=== PATIENT | female | born 1950 | race Caucasian/White ===

== ENCOUNTER → 2020-09-10 | Outpatient (CLI) | payer OTHER, BC ==
[~2020-09-10] VITALS: Ht 167.6 cm; Wt 64.4 kg
[~2020-09-10] MED LIST: BUSPIRONE HCL10 MG PO; CEPHALEXIN 250250 M1 PO; EPITOL200 MG PO; FLOMAX0.4 MG PO; GABAPENTIN800 M1 PO; HYDROCODONE-AP1 EA11 PO; MACROBID 100 M100 MG PO; MS CONTIN30 MG PO; NORCO 10-325 T1 EACH PO; NORVASC10 MG PO; TYLENOL325 MG PO
[2020-09-10 13:09] VITALS: BP 146/79
--- NOTE | 2020-09-10 13:31 | NUR ---
Pain Clinic Assessment: 1. History of Osteoarthritis: Not Applicable History of Rheumatoid Arthritis: Not Applicable 2. Height: 5 ft. 6 in. 167.6 cm. Weight: 142.0 lb. oz. 64.411 kg. Patient's BMI: 22.9 3. Vital Signs: BP: 146/79 Pulse: 83 Resp: 16 Temp: 02 Sat: 99 ECG Mon: 4. Pain Intensity: 9 5. Fall Risk: Dizziness: N Needs help standing or walking: N Fallen in the last 3 months: N Fall risk comments: 6. Patient on Blood Thinner: None 7. History of Hypertension: Y 8. Opioid Therapy greater than 6 weeks: Y Opiate Contract Signed: 9. Risk Assessment Tool Provided: LOW 10. Functional Assessment Tool: 70/70 11. Recreational Drug Use: Never Drug Type: Tobacco Use: Never Smoker Tobacco Type: Amount or Packs/day: How Many Years: Alcohol Use: Yes Frequency: Weekly Quant: 1-2
== END ==
LOC: PAIN 10:46
PROVIDERS: ATTEND Anesthesiology Pain Medicine
DX: G89.29 Other chronic pain (principal); M54.5 Low back pain; M79.604 Pain in right leg; M79.605 Pain in left leg; I10 Essential (primary) hypertension; G96.191 Perineural cyst; G58.8 Other specified mononeuropathies; R39.198 Other difficulties with micturition; R39.11 Hesitancy of micturition; C44.722 Squamous cell carcinoma of skin of right lower limb, including hip; M89.8X9 Other specified disorders of bone, unspecified site; M25.812 Other specified joint disorders, left shoulder; C44.309 Unspecified malignant neoplasm of skin of other parts of face; C44.311 Basal cell carcinoma of skin of nose; Z88.8 Allergy status to other drugs, medicaments and biological substances; Z90.49 Acquired absence of other specified parts of digestive tract; Z79.891 Long term (current) use of opiate analgesic; Z79.899 Other long term (current) drug therapy

== ENCOUNTER → 2020-10-08 | Outpatient (CLI) | payer OTHER, BC ==
[~2020-10-08] VITALS: Ht 167.6 cm; Wt 64.2 kg
[2020-10-08 11:09] VITALS: BP 146/65
--- NOTE | 2020-10-08 11:13 | NUR ---
Pain Clinic Assessment: 1. History of Osteoarthritis: Not Applicable History of Rheumatoid Arthritis: Not Applicable 2. Height: 5 ft. 6 in. 167.6 cm. Weight: 141.6 lb. oz. 64.229 kg. Patient's BMI: 22.9 3. Vital Signs: BP: 146/65 Pulse: 68 Resp: 16 Temp: 02 Sat: 98 ECG Mon: 4. Pain Intensity: 4 5. Fall Risk: Dizziness: N Needs help standing or walking: N Fallen in the last 3 months: N Fall risk comments: 6. Patient on Blood Thinner: None 7. History of Hypertension: Y 8. Opioid Therapy greater than 6 weeks: Y Opiate Contract Signed: 9. Risk Assessment Tool Provided: LOW 10. Functional Assessment Tool: 70/70 11. Recreational Drug Use: Never Drug Type: Tobacco Use: Never Smoker Tobacco Type: Amount or Packs/day: How Many Years: Alcohol Use: Yes Frequency: Quant:
== END ==
LOC: PAIN 07:10
PROVIDERS: ATTEND Anesthesiology Pain Medicine
DX: G89.29 Other chronic pain (principal); R39.11 Hesitancy of micturition; G50.0 Trigeminal neuralgia; I10 Essential (primary) hypertension; M89.9 Disorder of bone, unspecified; M75.82 Other shoulder lesions, left shoulder; C44.309 Unspecified malignant neoplasm of skin of other parts of face; C44.301 Unspecified malignant neoplasm of skin of nose; C44.709 Unspecified malignant neoplasm of skin of left lower limb, including hip; C44.702 Unspecified malignant neoplasm of skin of right lower limb, including hip; Z79.899 Other long term (current) drug therapy; Z79.891 Long term (current) use of opiate analgesic

== ENCOUNTER → 2020-11-05 | Outpatient (CLI) | payer OTHER, BC ==
[~2020-11-05] VITALS: Ht 167.6 cm; Wt 63.9 kg
[2020-11-05 11:24] VITALS: BP 153/79
--- NOTE | 2020-11-05 11:29 | NUR ---
Pain Clinic Assessment: 1. History of Osteoarthritis: Not Applicable History of Rheumatoid Arthritis: Not Applicable 2. Height: 5 ft. 6 in. 167.6 cm. Weight: 140.8 lb. oz. 63.866 kg. Patient's BMI: 22.7 3. Vital Signs: BP: 153/79 Pulse: 73 Resp: 16 Temp: 02 Sat: 97 ECG Mon: 4. Pain Intensity: 3 5. Fall Risk: Dizziness: N Needs help standing or walking: N Fallen in the last 3 months: N Fall risk comments: 6. Patient on Blood Thinner: None 7. History of Hypertension: Y 8. Opioid Therapy greater than 6 weeks: Y Opiate Contract Signed: 09/10/20 9. Risk Assessment Tool Provided: LOW 10. Functional Assessment Tool: 70/70 11. Recreational Drug Use: Never Drug Type: Tobacco Use: Never Smoker Tobacco Type: Amount or Packs/day: How Many Years: Alcohol Use: Yes Frequency: Weekly Quant: 5
== END ==
LOC: PAIN 07:02
PROVIDERS: ATTEND Anesthesiology Pain Medicine
DX: G96.191 Perineural cyst (principal); G62.9 Polyneuropathy, unspecified; G89.29 Other chronic pain; R35.0 Frequency of micturition; G50.0 Trigeminal neuralgia; I10 Essential (primary) hypertension; Z79.899 Other long term (current) drug therapy

== ENCOUNTER → 2020-12-03 | Outpatient (CLI) | payer OTHER, BC ==
[~2020-12-03] VITALS: Ht 167.6 cm; Wt 62.5 kg
[2020-12-03 11:22] VITALS: BP 144/74
--- NOTE | 2020-12-03 11:29 | NUR ---
Pain Clinic Assessment: 1. History of Osteoarthritis: Not Applicable History of Rheumatoid Arthritis: Not Applicable 2. Height: 5 ft. 6 in. 167.6 cm. Weight: 137.8 lb. oz. 62.506 kg. Patient's BMI: 22.3 3. Vital Signs: BP: 144/74 Pulse: 67 Resp: 16 Temp: 02 Sat: 96 ECG Mon: 4. Pain Intensity: 4 5. Fall Risk: Dizziness: N Needs help standing or walking: N Fallen in the last 3 months: N Fall risk comments: 6. Patient on Blood Thinner: None 7. History of Hypertension: Y 8. Opioid Therapy greater than 6 weeks: Y Opiate Contract Signed: 09/10/20 9. Risk Assessment Tool Provided: LOW 10. Functional Assessment Tool: 70/70 11. Recreational Drug Use: Never Drug Type: Tobacco Use: Never Smoker Tobacco Type: Amount or Packs/day: How Many Years: Alcohol Use: Yes Frequency: Special Occasions Quant: 1
== END ==
LOC: PAIN 06:55
PROVIDERS: ATTEND Anesthesiology Pain Medicine
DX: G62.9 Polyneuropathy, unspecified (principal); G89.29 Other chronic pain; R39.198 Other difficulties with micturition; G50.0 Trigeminal neuralgia; I10 Essential (primary) hypertension; Z79.899 Other long term (current) drug therapy; Z79.891 Long term (current) use of opiate analgesic

== ENCOUNTER → 2020-12-31 | Outpatient (CLI) | payer OTHER, BC ==
[~2020-12-31] VITALS: Ht 167.6 cm; Wt 60.8 kg
[~2020-12-31] MED LIST changes: +TYLENOL325 M1 PO
[2020-12-31 09:49] VITALS: BP 119/41
--- NOTE | 2020-12-31 10:01 | NUR ---
Pain Clinic Assessment: 1. History of Osteoarthritis: Not Applicable History of Rheumatoid Arthritis: Not Applicable 2. Height: 5 ft. 6 in. 167.6 cm. Weight: 134.0 lb. oz. 60.782 kg. Patient's BMI: 21.6 3. Vital Signs: BP: 119/41 Pulse: 71 Resp: 16 Temp: 02 Sat: 97 ECG Mon: 4. Pain Intensity: 3 5. Fall Risk: Dizziness: N Needs help standing or walking: N Fallen in the last 3 months: N Fall risk comments: 6. Patient on Blood Thinner: None 7. History of Hypertension: Y 8. Opioid Therapy greater than 6 weeks: Y Opiate Contract Signed: 09/10/20 9. Risk Assessment Tool Provided: LOW 10. Functional Assessment Tool: 70/70 11. Recreational Drug Use: Never Drug Type: Tobacco Use: Never Smoker Tobacco Type: Amount or Packs/day: How Many Years: Alcohol Use: Yes Frequency: Daily Quant: 1/2 GLASS A NIGHT
== END ==
LOC: PAIN 08:53
PROVIDERS: ATTEND Anesthesiology Pain Medicine
DX: G50.0 Trigeminal neuralgia (principal); G62.9 Polyneuropathy, unspecified; G89.29 Other chronic pain; I10 Essential (primary) hypertension; Z79.899 Other long term (current) drug therapy; Z79.891 Long term (current) use of opiate analgesic

== ENCOUNTER → 2021-01-26 | Outpatient (CLI) | payer OTHER, BC ==
[~2021-01-26] VITALS: Ht 167.6 cm; Wt 61.7 kg
[2021-01-26 11:21] VITALS: BP 146/74
--- NOTE | 2021-01-26 11:31 | NUR ---
Pain Clinic Assessment: 1. History of Osteoarthritis: Not Applicable History of Rheumatoid Arthritis: Not Applicable 2. Height: 5 ft. 6 in. 167.6 cm. Weight: 136.0 lb. oz. 61.689 kg. Patient's BMI: 22.0 3. Vital Signs: BP: 146/74 Pulse: 73 Resp: 14 Temp: 02 Sat: 98 ECG Mon: 4. Pain Intensity: 4, 11 face 5. Fall Risk: Dizziness: N Needs help standing or walking: N Fallen in the last 3 months: N Fall risk comments: 6. Patient on Blood Thinner: None 7. History of Hypertension: Y 8. Opioid Therapy greater than 6 weeks: Y Opiate Contract Signed: 09/10/20 9. Risk Assessment Tool Provided: LOW 10. Functional Assessment Tool: 70/70 11. Recreational Drug Use: Never Drug Type: Tobacco Use: Never Smoker Tobacco Type: Amount or Packs/day: How Many Years: Alcohol Use: Yes Frequency: Quant:
== END ==
LOC: PAIN 07:08
PROVIDERS: ATTEND Clinical Nurse Specialist Adult Health
DX: G62.9 Polyneuropathy, unspecified (principal); G89.29 Other chronic pain; I10 Essential (primary) hypertension; G50.0 Trigeminal neuralgia; Z79.891 Long term (current) use of opiate analgesic; Z79.899 Other long term (current) drug therapy

== ENCOUNTER → 2021-02-23 | Outpatient (CLI) | payer OTHER, BC ==
[~2021-02-23] VITALS: Ht 167.6 cm; Wt 64.3 kg
[2021-02-23 10:33] VITALS: BP 145/58
--- NOTE | 2021-02-23 10:43 | NUR ---
Pain Clinic Assessment: 1. History of Osteoarthritis: Not Applicable History of Rheumatoid Arthritis: Not Applicable 2. Height: 5 ft. 6 in. 167.6 cm. Weight: 141.8 lb. oz. 64.320 kg. Patient's BMI: 22.9 3. Vital Signs: BP: 145/58 Pulse: 75 Resp: 20 Temp: 02 Sat: 100 ECG Mon: 4. Pain Intensity: 4-5 5. Fall Risk: Dizziness: N Needs help standing or walking: N Fallen in the last 3 months: N Fall risk comments: 6. Patient on Blood Thinner: None 7. History of Hypertension: Y 8. Opioid Therapy greater than 6 weeks: Y Opiate Contract Signed: 09/10/20 9. Risk Assessment Tool Provided: LOW 10. Functional Assessment Tool: 70/70 11. Recreational Drug Use: Never Drug Type: Tobacco Use: Never Smoker Tobacco Type: Amount or Packs/day: How Many Years: Alcohol Use: Yes Frequency: Quant:
== END ==
LOC: PAIN 06:51
PROVIDERS: ATTEND Clinical Nurse Specialist Adult Health
DX: G89.29 Other chronic pain (principal); M54.16 Radiculopathy, lumbar region; Z88.8 Allergy status to other drugs, medicaments and biological substances; Z79.899 Other long term (current) drug therapy

== ENCOUNTER → 2021-03-23 | Outpatient (CLI) | payer OTHER, BC ==
[~2021-03-23] VITALS: Ht 167.6 cm; Wt 63.6 kg
[2021-03-23 11:11] VITALS: BP 152/56
--- NOTE | 2021-03-23 11:16 | NUR ---
Pain Clinic Assessment: 1. History of Osteoarthritis: Not Applicable History of Rheumatoid Arthritis: Not Applicable 2. Height: 5 ft. 6 in. 167.6 cm. Weight: 140.2 lb. oz. 63.594 kg. Patient's BMI: 22.6 3. Vital Signs: BP: 152/56 Pulse: 74 Resp: 16 Temp: 02 Sat: 97 ECG Mon: 4. Pain Intensity: 4 5. Fall Risk: Dizziness: N Needs help standing or walking: N Fallen in the last 3 months: N Fall risk comments: 6. Patient on Blood Thinner: None 7. History of Hypertension: Y 8. Opioid Therapy greater than 6 weeks: Y Opiate Contract Signed: 09/10/20 9. Risk Assessment Tool Provided: LOW 10. Functional Assessment Tool: 70/70 11. Recreational Drug Use: Never Drug Type: Tobacco Use: Never Smoker Tobacco Type: Amount or Packs/day: How Many Years: Alcohol Use: Yes Frequency: Special Occasions Quant: 1
== END ==
LOC: PAIN 10:51
PROVIDERS: ATTEND Clinical Nurse Specialist Adult Health
DX: M54.16 Radiculopathy, lumbar region (principal); M54.50 Low back pain, unspecified; Z88.8 Allergy status to other drugs, medicaments and biological substances; Z79.899 Other long term (current) drug therapy

== ENCOUNTER → 2021-04-27 | Outpatient (CLI) | payer OTHER, BC ==
[~2021-04-27] VITALS: Ht 167.6 cm; Wt 63.7 kg
[2021-04-27 10:53] VITALS: BP 158/79
--- NOTE | 2021-04-27 11:03 | NUR ---
Pain Clinic Assessment: 1. History of Osteoarthritis: Not Applicable History of Rheumatoid Arthritis: Not Applicable 2. Height: 5 ft. 6 in. 167.6 cm. Weight: 140.4 lb. oz. 63.685 kg. Patient's BMI: 22.7 3. Vital Signs: BP: 158/79 Pulse: 73 Resp: 14 Temp: 02 Sat: 98 ECG Mon: 4. Pain Intensity: 4 5. Fall Risk: Dizziness: N Needs help standing or walking: N Fallen in the last 3 months: N Fall risk comments: 6. Patient on Blood Thinner: None 7. History of Hypertension: Y 8. Opioid Therapy greater than 6 weeks: Y Opiate Contract Signed: 09/10/20 9. Risk Assessment Tool Provided: LOW 10. Functional Assessment Tool: 70/70 11. Recreational Drug Use: Never Drug Type: Tobacco Use: Never Smoker Tobacco Type: Amount or Packs/day: How Many Years: Alcohol Use: Yes Frequency: Quant:
== END ==
LOC: PAIN 04-22 09:54
PROVIDERS: ATTEND Clinical Nurse Specialist Adult Health
DX: G89.29 Other chronic pain (principal); M54.16 Radiculopathy, lumbar region; Z88.8 Allergy status to other drugs, medicaments and biological substances; Z79.899 Other long term (current) drug therapy

== ENCOUNTER → 2021-05-25 | Outpatient (CLI) | payer OTHER, BC ==
[~2021-05-25] VITALS: Ht 167.6 cm; Wt 63.6 kg
[~2021-05-25] MED LIST changes: +CARBAMAZEPINE200 M5 PO
[2021-05-25 10:54] VITALS: BP 114/63
--- NOTE | 2021-05-25 11:13 | NUR ---
Pain Clinic Assessment: 1. History of Osteoarthritis: Not Applicable History of Rheumatoid Arthritis: Not Applicable 2. Height: 5 ft. 6 in. 167.6 cm. Weight: 140.2 lb. oz. 63.594 kg. Patient's BMI: 22.6 3. Vital Signs: BP: 114/63 Pulse: 70 Resp: 14 Temp: 02 Sat: 98 ECG Mon: 4. Pain Intensity: 5 5. Fall Risk: Dizziness: N Needs help standing or walking: N Fallen in the last 3 months: N Fall risk comments: 6. Patient on Blood Thinner: None 7. History of Hypertension: Y 8. Opioid Therapy greater than 6 weeks: Y Opiate Contract Signed: 09/10/20 9. Risk Assessment Tool Provided: LOW 10. Functional Assessment Tool: 70/70Y 11. Recreational Drug Use: Never Drug Type: Tobacco Use: Never Smoker Tobacco Type: Amount or Packs/day: How Many Years: Alcohol Use: Yes Frequency: Monthly Quant: 5
== END ==
LOC: PAIN 07:02
PROVIDERS: ATTEND Anesthesiology Pain Medicine
DX: C44.309 Unspecified malignant neoplasm of skin of other parts of face (principal); I10 Essential (primary) hypertension; G89.29 Other chronic pain; R39.11 Hesitancy of micturition; G50.0 Trigeminal neuralgia; D04.71 Carcinoma in situ of skin of right lower limb, including hip; M94.9 Disorder of cartilage, unspecified; M75.92 Shoulder lesion, unspecified, left shoulder; C44.311 Basal cell carcinoma of skin of nose; Z79.899 Other long term (current) drug therapy; Z88.8 Allergy status to other drugs, medicaments and biological substances

== ENCOUNTER → 2021-06-24 | Outpatient (CLI) | payer OTHER, BC ==
[~2021-06-24] VITALS: Ht 167.6 cm; Wt 63.8 kg
[~2021-06-24] MED LIST changes: +CARBAMAZEPINE100 M2 PO; +WELLBUTRIN XL150 MG PO
[2021-06-24 12:45] VITALS: BP 145/74
--- NOTE | 2021-06-24 12:52 | NUR ---
Pain Clinic Assessment: 1. History of Osteoarthritis: Not Applicable History of Rheumatoid Arthritis: Not Applicable 2. Height: 5 ft. 6 in. 167.6 cm. Weight: 140.6 lb. oz. 63.776 kg. Patient's BMI: 22.7 3. Vital Signs: BP: 145/74 Pulse: 81 Resp: 16 Temp: 02 Sat: 96 ECG Mon: 4. Pain Intensity: 4 5. Fall Risk: Dizziness: N Needs help standing or walking: N Fallen in the last 3 months: N Fall risk comments: 6. Patient on Blood Thinner: None 7. History of Hypertension: Y 8. Opioid Therapy greater than 6 weeks: Y Opiate Contract Signed: 09/10/20 9. Risk Assessment Tool Provided: LOW 10. Functional Assessment Tool: 70/70Y 11. Recreational Drug Use: Never Drug Type: Tobacco Use: Never Smoker Tobacco Type: Amount or Packs/day: How Many Years: Alcohol Use: Yes Frequency: Weekly Quant: 1
== END ==
LOC: PAIN 09:16
PROVIDERS: ATTEND Anesthesiology Pain Medicine
DX: M54.50 Low back pain, unspecified (principal); M79.609 Pain in unspecified limb